=== PATIENT | female | born 2000 | race Two or more races ===

== ENCOUNTER 2025-08-14 14:00 | Outpatient (CLI) | payer OTHER | END 2025-08-14 14:10 | disposition home or self-care (01) | LOC: PPH VACUNA 14:00 | PROVIDERS: ATTEND Emergency Medicine Pediatric Emergency Medicine | DX: Z23 Encounter for immunization (principal) ==

== ENCOUNTER 2025-09-24 14:43 | Outpatient (CLI) | payer OTHER | END 2025-09-24 14:51 | disposition home or self-care (01) | LOC: LAB 14:43 | PROVIDERS: ATTEND Emergency Medicine Pediatric Emergency Medicine | DX: Z33.1 Pregnant state, incidental (principal) ==